=== PATIENT | male | born 1950 | race Caucasian/White ===

== ENCOUNTER 2018-11-05 00:43 | Inpatient (IN) | payer OTHER ==
[2018-11-05 01:11] LABS: ADD MAN DIFF? NO
[2018-11-05] MEDS: SOD CHLORIDE 0.9% 500 ML IV (01:11)
[2018-11-05 01:12] LABS: BASOPHILS % 0.2 % (0.0-2.0); EOSINOPHILS # 0.1 10^3/ul (0.0-0.5); EOSINOPHILS % 2.2 % (0.0-7.0); HEMATOCRIT 44.9 % (42.0-52.0); HEMOGLOBIN 14.3 g/dl (14.0-18.0); LYMPHOCYTES % 23.7 % (15.0-51.0); MEAN CORPUSCULAR HEMOGLOBIN 28.9 pg (29.0-33.0); MEAN CORPUSCULAR HGB CONC 31.8 g/dl (32.0-37.0); MEAN CORPUSCULAR VOLUME 90.7 fl (82.0-101.0); MEAN PLATELET VOLUME 9.8 fl (7.4-10.4); MONOCYTE # 0.3 10^3/ul (0.3-0.9); MONOCYTES % 6.2 % (0.0-11.0); NEUTROPHIL # 2.8 10^3/ul (1.6-7.5); NEUTROPHILS % 67.5 % (39.0-77.0); PLATELET COUNT 164 10^3/UL (140-415); RED BLOOD COUNT 4.95 10^6/ul (4.70-6.10); RED CELL DISTRIBUTION WIDTH 13.4 % (11.5-14.5)
[2018-11-05 01:12] LABS: WHITE BLOOD COUNT 4.2 10^3/ul (4.8-10.8)
[2018-11-05 01:31] LABS: PROTIME 13.3 Sec (11.9-14.9)
[2018-11-05 01:32] LABS: ALANINE AMINOTRANSFERASE 20 IU/L (13-69); ALBUMIN 3.7 g/dl (3.3-4.9); ALBUMIN/GLOBULIN RATIO 1.27; ALKALINE PHOSPHATASE 57 IU/L (42-121); ANION GAP 16 (5-13); ASPARTATE AMINO TRANSFERASE 24 IU/L (15-46); BILIRUBIN,INDIRECT 0.3 mg/dl (0-1.1); BILIRUBIN,TOTAL 0.3 mg/dl (0.2-1.3); BLOOD UREA NITROGEN 18 mg/dl (7-20); CARBON DIOXIDE 21 mmol/L (21-31); CHLORIDE 105 mmol/L (97-110); CREATININE 1.24 mg/dl (0.61-1.24); Estimated GFR 58 mL/min (>60); GLUCOSE 109 mg/dl (70-220); POTASSIUM 3.8 mmol/L (3.5-5.1); SODIUM 142 mmol/L (135-144); TOTAL PROTEIN 6.6 g/dl (6.1-8.1)
[2018-11-05 01:43] LABS: TROPONIN-I 0.012 ng/ml (0.000-0.120)
[2018-11-05] MEDS: LEVETIRACETAM 1000 MG (PMX) 100 ML IVPB (01:51)
[2018-11-05 01:53] LABS: ETHANOL < 10.0 mg/dl (0-0)
[2018-11-05 02:07] LABS: CREATINE KINASE 47 IU/L (23-200)
[2018-11-05 02:08] LABS: PARTIAL THROMBOPLASTIN TIME 31.6 Sec (23.0-35.0)
[2018-11-05 02:11] LABS: HEMOGLOBIN A1C 6.3 % (0-5.9)
[2018-11-05 02:20] LABS: CK-MB 0.43 ng/ml (0.0-2.4)
[2018-11-05 02:40] LABS: ADD UMIC NO; UR ASCORBIC ACID 20 mg/dL (NEGATIVE); UR BILIRUBIN (Dip) NEGATIVE (NEGATIVE); UR BLOOD (Dip) NEGATIVE (NEGATIVE); UR CLARITY CLEAR (CLEAR); UR COLOR YELLOW (YELLOW); UR GLUCOSE (Dip) 1+ mg/dL (NEGATIVE); UR KETONES (Dip) NEGATIVE (NEGATIVE); UR LEUKOCYTE ESTERASE (Dip) NEGATIVE Leu/ul (NEGATIVE); UR NITRITE (Dip) NEGATIVE (NEGATIVE); UR TOTAL PROTEIN (Dip) NEGATIVE (NEGATIVE); UR UROBILINOGEN (Dip) NEGATIVE (NEGATIVE)
[2018-11-05 03:20] LABS: AMPHETAMINE/METHAMPHETAMINE Negative (NEGATIVE); BARBITURATES Negative (NEGATIVE); CANNABINOIDS Negative (NEGATIVE); COCAINE Negative (NEGATIVE); OPIATES Negative (NEGATIVE)
[2018-11-05 03:27] LABS: BENZODIAZEPINES Positive (NEGATIVE)
[2018-11-05] MEDS ORDERED: ACETAMINOPHEN 325 MG TAB PO (04:30)
[2018-11-05] MEDS ORDERED: ONDANSETRON 4 MG INJ IV ×2 (04:30→05:00)
[2018-11-05] MEDS ORDERED: hydrALAzine 20 MG INJ IV (05:00)
[2018-11-05] MEDS ORDERED: ACETAMINOPHEN 650 MG SUPP PR (05:00)
[2018-11-05] MEDS ORDERED: NACL 0.9% 3 ML SYG IV (05:00)
[2018-11-05] MEDS: ASPIRIN 81 MG TAB PO (06:55)
[2018-11-05] MEDS: LORAZEPAM 2 MG INJ IV ×2 (09:24→20:25)
[2018-11-05 13:14] LABS: MAGNESIUM 1.7 mg/dl (1.7-2.5)
[2018-11-05] MEDS: ASPIRIN 325 MG TAB PO (13:39)
[2018-11-05] MEDS: LEVETIRACETAM 750 MG TAB PO ×2 (13:40→20:19)
[2018-11-05] MEDS: METOPROLOL 25 MG TAB PO ×2 (13:40→20:20)
[2018-11-05] MEDS: ATORVASTATIN 80 MG TAB PO (20:19)
[2018-11-06 05:54] LABS: ADD MAN DIFF? NO
[2018-11-06 06:04] LABS: BASOPHILS % 0.3 % (0.0-2.0); EOSINOPHILS # 0.2 10^3/ul (0.0-0.5); EOSINOPHILS % 3.2 % (0.0-7.0); HEMATOCRIT 43.5 % (42.0-52.0); HEMOGLOBIN 14.2 g/dl (14.0-18.0); LYMPHOCYTES # 1.9 10^3/ul (0.8-2.9); LYMPHOCYTES % 26.7 % (15.0-51.0); MEAN CORPUSCULAR HEMOGLOBIN 28.9 pg (29.0-33.0); MEAN CORPUSCULAR HGB CONC 32.6 g/dl (32.0-37.0); MEAN CORPUSCULAR VOLUME 88.6 fl (82.0-101.0); MEAN PLATELET VOLUME 10.6 fl (7.4-10.4); MONOCYTE # 0.6 10^3/ul (0.3-0.9); MONOCYTES % 7.9 % (0.0-11.0); NEUTROPHIL # 4.3 10^3/ul (1.6-7.5); NEUTROPHILS % 61.8 % (39.0-77.0); PLATELET COUNT 162 10^3/UL (140-415); RED BLOOD COUNT 4.91 10^6/ul (4.70-6.10); RED CELL DISTRIBUTION WIDTH 13.6 % (11.5-14.5)
[2018-11-06 06:33] LABS: ALANINE AMINOTRANSFERASE 33 IU/L (13-69); ALBUMIN 3.8 g/dl (3.3-4.9); ALBUMIN/GLOBULIN RATIO 1.18; ALKALINE PHOSPHATASE 71 IU/L (42-121); ANION GAP 8 (5-13); ASPARTATE AMINO TRANSFERASE 72 IU/L (15-46); BILIRUBIN,INDIRECT 0.8 mg/dl (0-1.1); BILIRUBIN,TOTAL 0.8 mg/dl (0.2-1.3); BLOOD UREA NITROGEN 19 mg/dl (7-20); CALCIUM 9.8 mg/dl (8.4-10.2); CARBON DIOXIDE 28 mmol/L (21-31); CHLORIDE 105 mmol/L (97-110); CHOL/HDL RATIO 1.8 RATIO; CHOLESTEROL 84 mg/dl (100-200); CREATININE 1.25 mg/dl (0.61-1.24); Estimated GFR 57 mL/min (>60); GLUCOSE 117 mg/dl (70-220); HDL CHOLESTEROL 45 mg/dl (31-75); LDL CHOLESTEROL,CALCULATED 24 mg/dl; MAGNESIUM 1.8 mg/dl (1.7-2.5); POTASSIUM 3.9 mmol/L (3.5-5.1); SODIUM 141 mmol/L (135-144); TRIGLYCERIDES 73 mg/dl (0-149)
[2018-11-06 06:40] LABS: HEMOGLOBIN A1C 6.3 % (0-5.9)
[2018-11-06] MEDS: METOPROLOL 25 MG TAB PO ×2 (09:05→20:27)
[2018-11-06] MEDS: LEVETIRACETAM 750 MG TAB PO ×2 (09:05→20:26)
[2018-11-06] MEDS: ASPIRIN 325 MG TAB PO (09:05)
[2018-11-06] MEDS ORDERED: GLUCAGON 1 MG INJ IM (11:30)
[2018-11-06] MEDS ORDERED: DEXTROSE 50% 50 ML SYRINGE IV ×2 (11:30)
[2018-11-06] MEDS ORDERED: GLUCOSE GEL 15 GRAM TUBE BUCCAL (11:30)
[2018-11-06] MEDS ORDERED: GLUCOSE GEL 15 GRAM TUBE PO ×2 (11:30)
[2018-11-06] MEDS: INSULIN ASPART [NOVOLOG] 3 ML PEN SC ×3 (12:30→20:30)
[2018-11-06] MEDS: ATORVASTATIN 80 MG TAB PO (20:27)
[2018-11-07] MEDS: ACCU-CHEK XX (02:00)
[2018-11-07 06:07] LABS: ADD MAN DIFF? NO
[2018-11-07 06:11] LABS: BASOPHILS % 0.3 % (0.0-2.0); EOSINOPHILS # 0.2 10^3/ul (0.0-0.5); EOSINOPHILS % 3.1 % (0.0-7.0); HEMATOCRIT 47.2 % (42.0-52.0); HEMOGLOBIN 15.2 g/dl (14.0-18.0); LYMPHOCYTES # 2.3 10^3/ul (0.8-2.9); LYMPHOCYTES % 37.3 % (15.0-51.0); MEAN CORPUSCULAR HGB CONC 32.2 g/dl (32.0-37.0); MEAN CORPUSCULAR VOLUME 90.1 fl (82.0-101.0); MEAN PLATELET VOLUME 10.5 fl (7.4-10.4); MONOCYTE # 0.5 10^3/ul (0.3-0.9); MONOCYTES % 8.5 % (0.0-11.0); NEUTROPHIL # 3.1 10^3/ul (1.6-7.5); NEUTROPHILS % 50.5 % (39.0-77.0); PLATELET COUNT 151 10^3/UL (140-415); RED BLOOD COUNT 5.24 10^6/ul (4.70-6.10); RED CELL DISTRIBUTION WIDTH 13.4 % (11.5-14.5)
[2018-11-07 06:11] LABS: WHITE BLOOD COUNT 6.1 10^3/ul (4.8-10.8)
[2018-11-07 06:56] LABS: ANION GAP 13 (5-13); BLOOD UREA NITROGEN 20 mg/dl (7-20); CARBON DIOXIDE 27 mmol/L (21-31); CHLORIDE 105 mmol/L (97-110); CREATININE 1.27 mg/dl (0.61-1.24); Estimated GFR 56 mL/min (>60); GLUCOSE 114 mg/dl (70-220); POTASSIUM 3.9 mmol/L (3.5-5.1); SODIUM 145 mmol/L (135-144)
[2018-11-07] MEDS: INSULIN ASPART [NOVOLOG] 3 ML PEN SC ×4 (08:00→20:34)
[2018-11-07] MEDS: ASPIRIN 325 MG TAB PO (08:52)
[2018-11-07] MEDS: LEVETIRACETAM 750 MG TAB PO ×2 (08:52→20:33)
[2018-11-07] MEDS: METOPROLOL 25 MG TAB PO ×2 (08:52→20:34)
[2018-11-07] MEDS: ATORVASTATIN 80 MG TAB PO (20:33)
[2018-11-08] MEDS: ACCU-CHEK XX (02:00)
[2018-11-08] MEDS: INSULIN ASPART [NOVOLOG] 3 ML PEN SC ×2 (08:00→11:22)
[2018-11-08] MEDS: METOPROLOL 25 MG TAB PO (08:06)
[2018-11-08] MEDS: LEVETIRACETAM 750 MG TAB PO (08:06)
[2018-11-08] MEDS: ASPIRIN 325 MG TAB PO (08:06)
== END 2018-11-08 15:55 | disposition home health service (06) | DRG 92 ==
LOC: E/R 00:43 → 6WM 04:28
PROVIDERS: Family Medicine
DX: G83.84 Todd's paralysis (postepileptic) (principal); N17.9 Acute kidney failure, unspecified; Q21.1 Atrial septal defect; G81.91 Hemiplegia, unspecified affecting right dominant side; G40.901 Epilepsy, unspecified, not intractable, with status epilepticus; I25.10 Atherosclerotic heart disease of native coronary artery without angina pectoris; I10 Essential (primary) hypertension; Z86.73 Personal history of transient ischemic attack (TIA), and cerebral infarction without residual deficits; I16.0 Hypertensive urgency; Z95.1 Presence of aortocoronary bypass graft; R73.03 Prediabetes
CPT/HCPCS: 36415; 70450; 70551; 71045; 80048; 80053; 80061; 80307; 81003; 82550; 82553; 82962; 83036; 83735; 84100; 84443; 84484; 85025; 85610; 85730; 92526; 92610; 93005; 93306; 95819; 96374; 97110; 97116; 97163; 97530; 99291-25